=== PATIENT | male | born 1990 | race African-American/Black ===

== ENCOUNTER 2018-10-21 14:46 | Emergency (ER) | payer SELFPAY ==
--- NOTE | 2018-10-21 16:48 | ER Document Report ---
ED Medical Screen (RME) - General Chief Complaint: Nausea/Vomiting Stated Complaint: VOMITING Time Seen by Provider: 10/21/18 16:24 Notes: Patient is having nausea and vomiting and pains that started this afternoon. He ate a [place] spring roll about 1/2-hour or so before his symptoms began. He first vomited at about 2:15 PM and then vomited a couple of more times after that. He works at a [employer] center and his boss told him he needed to have a note to be able to return to work. Patient says he would like to be off the rest of the shift and return to work tomorrow. He no longer feels nauseated but has some upper epigastric discomfort like a "knot twisting". Has not had any diarrhea. Denies fever. No significant past medical history. - Related Data Allergies/Adverse Reactions: No Known Allergies Allergy (Verified 10/21/18 14:49) Past Medical History - Social History Cigarette use (# per day): No Family history: Reviewed & Not Pertinent GI Medical History: Reports: None Past Surgical History: Reports: None Review of Systems - Review of Systems Notes: CONSTITUTIONAL : Denies fever. CARDIOVASCULAR: Denies chest pain. RESPIRATORY: Denies cough, chest congestion, or shortness of breath. GASTROINTESTINAL: See HPI. GENITOURINARY: Denies difficulty or painful urinating, urinary frequency, blood in urine. Physical Exam - Vital signs Vitals: Temp Pulse Resp BP Pulse Ox 98.1 F 90 18 136/80 H 98 10/21/18 14:50 10/21/18 14:50 10/21/18 14:50 10/21/18 14:50 10/21/18 14:50 Interpretation: Normal. No: Febrile Notes: PHYSICAL EXAMINATION: GENERAL: Well-appearing, no acute distress. HEAD: Atraumatic, normocephalic. NECK: Normal range of motion, supple. LUNGS: Breath sounds clear and equal bilaterally. HEART: Regular rate and rhythm without murmurs heard. ABDOMEN: Soft, only minimal tenderness in the epigastrium. No tenderness from the umbilicus downward on either side. No guarding and no rebound present. No guarding or rebound or masses felt. Course - Re-evaluation Re-evalutation: 10/21/18 17:03 Patient was asymptomatic during his stay in the department. I do not think any lab work is necessary to evaluate his presentation at this time. - Vital Signs Vital signs: Temp Pulse Resp BP Pulse Ox 98.1 F 90 18 136/80 H 98 10/21/18 14:50 10/21/18 14:50 10/21/18 14:50 10/21/18 14:50 10/21/18 14:50 Doctor's Discharge - Discharge Clinical Impression: Nausea and vomiting, Abdominal pain Condition: Stable Disposition: HOME, SELF-CARE Additional Instructions: VOMITING: Vomiting (or nausea without vomiting) can be caused by many other different problems. It can mean that something's wrong with the stomach, such as ulcers or inflammation or the intestinal tract, such as appendicitis. But it can also be a symptom of a problem that has nothing to do with the stomach or intestines. Vomiting is common with severe headaches, earaches, tonsillitis, and kidney infections, etc. We see it with pneumonia or heart attacks. Drugs can cause nausea and vomiting. Many abdominal problems cause vomiting; for example, gallstones, kidney stones, pancreatitis, and intestinal obstruction ( blocked bowels). In most cases, curing the vomiting depends on fixing the problem that caused it. For temporary relief, we may use an anti-nausea medicine. For home use, we can prescribe suppositories, chewable pills, pills that dissolve in the mouth, or liquid anti-nausea drugs. If the vomiting seems to be caused by a problem in the stomach, acid-suppressing drugs may be prescribed as well. It's important to avoid dehydration. Sip small amounts of clear liquids ( soft drinks, tea, broth, etc) . Try to take fluids frequently even if you are vomiting to prevent dehydration. Take increasing amounts of fluid and when liquids are being consumed successfully, advance to small amounts of bland food (toast, soups, mashed potatoes, etc.) until you are able to resume a regular diet. Avoid aspirin, tobacco, and alcohol. If the vomiting worsens, if the problem that's making you vomit worsens, or if there's evidence of bleeding in the stomach (such as black, tarry stool, or bloody or black vomit), you should return immediately. Also, return if abdominal pain worsens or becomes localized to one area or you develop high fever. Call your doctor if you aren't improved in 24 hours. VIRAL SYNDROME: The physician has diagnosed a viral infection. Viruses not only cause "colds," but can cause many different symptoms including generalized aching, fever, headache, cough, diarrhea, nausea, vomiting, and fatigue. The treatment, for the most part, is simply relief of symptoms. This means that antibiotics are usually not given. Rest, fluids, pain medications and, occasionally, medication for the specific symptoms that are most bothersome will be prescribed. Use good handwashing to avoid passing the virus to others. Shared toys should be cleaned with disinfectant. Clean the toilets, sinks, and counter surfaces in bathrooms. Launder clothing in hot water. Contact the physician if you develop any new or unusual symptoms such as severe headache, stiff neck, high fever, chest pain, productive cough, or shortness of breath. You should be rechecked if you don't see marked improvement within seven to 10 days. ANTINAUSEA MEDICATION: You have been given a medication to suppress nausea and vomiting. This type of medication can be given as a shot, pill, or suppository. It will usually last for many hours. Pills and shots usually last six to eight hours. For the typical illness, only one or two doses of the medication may be necessary. Mild lightheadedness may occur. This type of medicine can cause drowsiness. Do not drive or operate dangerous machinery while under its influence. Do not mix with alcohol. See your doctor at once if you have muscle spasms or tightness, or uncontrollable motions (particularly of the neck, mouth, or jaw). Persistent vomiting or severe lightheadedness should also be evaluated by the physician. PRESCRIBED ANTIDIARRHEAL MEDICATION: Your doctor has prescribed antidiarrhea medication for you. While the usual treatment for diarrhea is a clear liquid diet to rest the bowels, an antidiarrheal medicine may allow you to be more active and comfortable while you recover. This medication can make you drowsy. Do not drive or operate machinery while under its influence. Do not combine with alcohol. Prescription antidiarrhea medicine can cause dry mouth. Occasionally, it can make you unable to pass your urine. Do not exceed the prescribed dosage. Severe abdominal pains, lightheadedness, bloody stool, or fever indicate that your disease is worsening. If these occur, stop the medication and see your doctor at once. FOLLOW-UP CARE: If you have been referred to a physician for follow-up care, call the physician s office for an appointment as you were instructed or within the next two days. If you experience worsening or a significant change in your symptoms, notify the physician immediately or return to the Emergency Department at any time for re-evaluation. Return if you have new or worsening symptoms such as fever, worsening abdominal pain, etc. Return for reevaluation if you are not better tomorrow. Prescriptions: Promethazine HCl [Phenergan 25 mg Tablet] 1 - 2 tab PO Q6H PRN #10 tablet PRN Reason: Forms: Return to Work
[2018-10-21 17:03] VITALS: BP 147/84
== END 2018-10-21 17:04 | disposition home or self-care (01) ==
LOC: ER 14:46
DX: R11.2 Nausea with vomiting, unspecified (principal); R10.816 Epigastric abdominal tenderness; R10.9 Unspecified abdominal pain
CPT/HCPCS: 99283

== ENCOUNTER 2018-12-01 18:28 | Emergency (ER) | payer SELFPAY | END 2018-12-01 18:40 | disposition left against medical advice (07) | LOC: ER 18:28 | DX: Z53.21 Procedure and treatment not carried out due to patient leaving prior to being seen by health care provider (principal) ==